=== PATIENT | female | born 1950 | race Caucasian/White ===

== ENCOUNTER 2018-07-20 12:56 | Inpatient (IN) ==
[2018-07-20] MEDS ORDERED: ONDANSETRON 4 MG/2 ML VIAL IV STA (17:32)
[2018-07-20] MEDS ORDERED: methylPREDNISolone SOD SUC 125 MG/2 ML VIAL IV STA (17:32)
[2018-07-20] MEDS ORDERED: SODIUM CHLORIDE 0.9% 1,000 ML IV STA (17:32)
[2018-07-20] MEDS ORDERED: LEVOFLOXACIN INJ 750 MG in PREMIX 1 EACH IV STA (17:32)
[2018-07-20] MEDS ORDERED: ALBUTEROL 2.5 MG/3 ML NEB RESP TX SCH (18:00)
[2018-07-20 18:32] LABS: Basophils % 0.2 % (0.0-0.8); Eosinophils % 0.2 % (0.00-10.9); Hematocrit 36.1 VOL% (35.7-47.0); Hemoglobin 11.2 GM/DL (12.0-16.0); Immature Granulocytes Absolute 0.12 #; Lymphocytes # 2.4 10*3/uL (1.4-4.0); Lymphocytes % 19.9 % (21.3-54.2); Mean Corpuscular Hemoglobin 29 PG (27-34); Mean Corpuscular Volume 94.3 FL (87-102); Mean Platelet Volume 9.3 FL (9.6-12.0); Monocytes # 1.9 10*3/uL (0.11-0.8); Monocytes % 15.6 % (1.7-12.7); Neutrophils # 7.6 10*3/uL (1.4-7.4); Neutrophils % 63.1 % (38.7-73.9); Platelet Count 207 T/CUMM (130-400); Red Blood Count 3.83 MC/CUMM (3.8-5.5); Red Cell Distribution Width 12.6 % (9.3-17.3); White Blood Count 12.1 T/CUMM (4-12)
[2018-07-20 18:47] LABS: Apearance,Urine Slightly Hazy (Clear); Bilirubin,Urine Negative (Negative); Blood, Urine Small mg/dL (Negative); Glucose,Urine (UA) Negative (Negative); Hyaline Casts,Urine 156 /LPF (0-3); Ketones,Urine 5 mg/dL (Negative); Mucus,Urine Few /LPF (Occasional); Nitrite,Urine Negative (Negative); Protein,Urine Negative; RBC,Urine 14 /HPF (0-4); Squamous Epithelial Cell,Urine Occasional /HPF (0-10); Urine Color Amber (Yellow); Urine Specific Gravity 1.024 (1.001-1.035); WBC,Urine 6 /HPF (0-6)
[2018-07-20 18:47] LABS: PT Patient Result 10.7 SECS; Partial Thromboplastin Time 32.4 SECS (0-40)
[2018-07-20 19:06] LABS: Alanine Aminotransferase 12 U/L (13-56); Albumin 3.7 G/DL (3.4-5.0); Alkaline Phosphatase 103 U/L (45-117); Aspartate Amino Transferase 11 U/L (0-37); Blood Urea Nitrogen 16 MG/DL (7-18); Calcium 8.4 MG/DL (8.5-10.1); Glucose 99 MG/DL (74-106); Osmolality,Calculated 268.2 MOS/KG (273-304); Potassium 3.7 MMOL/L (3.5-5.1); Sodium 134 MMOL/L (136-145); Total Protein 6.9 G/DL (6.4-8.3); Troponin I < 0.015 NG/ML (0.00-0.045)
[2018-07-20 19:25] LABS: Lymphocytes 15 % (20-55); Platelet Estimate Normal; Segmented Neutrophils 70 % (50-85); Total Cells Counted 100
[2018-07-20] MEDS ORDERED: NICOTINE 21 MG/24 HR PATCH TRANSDERM PRN (21:36)
[2018-07-20] MEDS ORDERED: ONDANSETRON 4 MG/2 ML VIAL IV PRN (21:36)
[2018-07-20] MEDS ORDERED: ACETAMINOPHEN 325 MG TABLET PO PRN (21:36)
[2018-07-20] MEDS ORDERED: diphenhydrAMINE CAP 25 MG CAPSULE PO PRN (21:36)
[2018-07-20] MEDS ORDERED: BISACODYL 5 MG TABLET PO PRN (21:36)
[2018-07-20] MEDS ORDERED: guaiFENesin/DM ER 600-30 MG TABLET PO PRN (21:36)
[2018-07-20] MEDS ORDERED: ZALEPLON 5 MG CAPSULE PO PRN (21:36)
[2018-07-20 22:05] LABS: Allen Test Positive
[2018-07-20 22:06] LABS: ABG Base Excess 1.5 MMOL/L (-2.5-2.5); ABG HCO3 25.7 MMOL/L (20-26); ABG Oxygen Saturation 97.8 % (95-100); ABG PCO2 66.7 MM HG (35-48); ABG PH 7.267 (7.35-7.45); ABG TCO2 27.6 MMOL/L (23-27)
[2018-07-20] MEDS: cefTRIAXone 1,000 MG in SYRINGE 1 EACH IV SCH (23:19)
[2018-07-21] MEDS: AZITHROMYCIN INJ 500 MG in SODIUM CHLORIDE 0.9% 250 ML IV SCH (00:04)
[2018-07-21] MEDS: ALBUTEROL/IPRATROPIUM 3 ML NEB RESP TX SCH ×4 (00:25→19:28)
[2018-07-21 04:05] LABS: Hematocrit 36.3 VOL% (35.7-47.0); Hemoglobin 11.3 GM/DL (12.0-16.0); Immature Granulocytes % 0.6 %; Immature Granulocytes Absolute 0.05 #; Lymphocytes # 0.7 10*3/uL (1.4-4.0); Lymphocytes % 8.4 % (21.3-54.2); Mean Corpuscular HGB Conc 31.1 GM/DL (32-36); Mean Corpuscular Hemoglobin 29 PG (27-34); Mean Corpuscular Volume 94.3 FL (87-102); Mean Platelet Volume 9.2 FL (9.6-12.0); Monocytes # 0.4 10*3/uL (0.11-0.8); Monocytes % 5.1 % (1.7-12.7); Neutrophils # 7.1 10*3/uL (1.4-7.4); Neutrophils % 85.9 % (38.7-73.9); Platelet Count 192 T/CUMM (130-400); Red Blood Count 3.85 MC/CUMM (3.8-5.5); Red Cell Distribution Width 12.6 % (9.3-17.3); White Blood Count 8.2 T/CUMM (4-12)
[2018-07-21 04:31] LABS: Lymphocytes 10 % (20-55); Segmented Neutrophils 89 % (50-85); Total Cells Counted 100
[2018-07-21 04:33] LABS: Anisocytosis Slight; Microcytosis Slight
[2018-07-21 04:34] LABS: Ovalocytes Slight; Platelet Estimate Normal
[2018-07-21 04:50] LABS: Alanine Aminotransferase 15 U/L (13-56); Albumin 3.3 G/DL (3.4-5.0); Alkaline Phosphatase 103 U/L (45-117); Aspartate Amino Transferase 11 U/L (0-37); Bilirubin,Total < 0.39 MG/DL (0.2-1.0); Blood Urea Nitrogen 15 MG/DL (7-18); Calcium 8.7 MG/DL (8.5-10.1); Glucose 142 MG/DL (74-106); Osmolality,Calculated 272.1 MOS/KG (273-304); Potassium 4.4 MMOL/L (3.5-5.1); Sodium 135 MMOL/L (136-145)
[2018-07-21] MEDS ORDERED: DIVALPROEX 500 MG TABLET PO SCH (10:00)
[2018-07-21] MEDS ORDERED: GLUCAGON 1 MG VIAL IM PRN (10:08)
[2018-07-21] MEDS ORDERED: DEXTROSE 50% 25 GM/50 ML VIAL IV PRN (10:08)
[2018-07-21] MEDS ORDERED: BENZTROPINE 0.5 MG TABLET PO SCH (11:00)
[2018-07-21] MEDS: cefTRIAXone 1,000 MG in SYRINGE 1 EACH IV SCH (11:30)
[2018-07-21] MEDS: predniSONE 20 MG TABLET PO SCH (11:30)
[2018-07-21] MEDS: PANTOPRAZOLE 40 MG TABLET PO SCH (11:30)
[2018-07-21] MEDS: ENOXAPARIN 40 MG/0.4 ML SYRINGE SUBCUT SCH (11:35)
[2018-07-21] MEDS ORDERED: DEXTROSE 50% 25 GM/50 ML SYRINGE IV PRN (13:30)
[2018-07-21] MEDS: SERTRALINE 50 MG TABLET PO SCH (14:02)
[2018-07-21] MEDS: oxyCODONE/ACETAMINOPHEN 5-325 MG TABLET PO PRN (14:02)
[2018-07-21] MEDS: risperiDONE 1 MG TABLET PO SCH ×2 (14:02→20:30)
[2018-07-21] MEDS: INSULIN LISPRO 100 UNIT/ML SUBCUT SCH ×3 (14:03→23:16)
[2018-07-21] MEDS: GABAPENTIN 400 MG CAPSULE PO SCH ×2 (15:35→20:30)
[2018-07-21] MEDS: cloNIDine 0.1 MG TABLET PO SCH (20:30)
[2018-07-21] MEDS: traZODone 50 MG TABLET PO SCH (20:30)
[2018-07-21] MEDS: METOPROLOL TARTRATE 50 MG TABLET PO SCH (20:30)
[2018-07-21] MEDS: BENZTROPINE 0.5 MG TABLET PO SCH (20:30)
[2018-07-21] MEDS: QUEtiapine 100 MG TABLET PO SCH (20:30)
[2018-07-21] MEDS: lamoTRIgine 25 MG TABLET PO SCH (20:30)
[2018-07-22] MEDS: ALBUTEROL/IPRATROPIUM 3 ML NEB RESP TX SCH ×4 (00:44→19:33)
[2018-07-22 04:45] LABS: Basophils % 0.3 % (0.0-0.8); Hematocrit 38.2 VOL% (35.7-47.0); Hemoglobin 11.8 GM/DL (12.0-16.0); Immature Granulocytes % 1.1 %; Lymphocytes # 1.4 10*3/uL (1.4-4.0); Lymphocytes % 15.1 % (21.3-54.2); Mean Corpuscular HGB Conc 30.9 GM/DL (32-36); Mean Corpuscular Hemoglobin 29 PG (27-34); Mean Corpuscular Volume 93.6 FL (87-102); Mean Platelet Volume 9.6 FL (9.6-12.0); Monocytes # 0.9 10*3/uL (0.11-0.8); Monocytes % 9.7 % (1.7-12.7); Neutrophils # 6.9 10*3/uL (1.4-7.4); Neutrophils % 73.8 % (38.7-73.9); Platelet Count 248 T/CUMM (130-400); Red Blood Count 4.08 MC/CUMM (3.8-5.5); Red Cell Distribution Width 12.3 % (9.3-17.3); White Blood Count 9.4 T/CUMM (4-12)
[2018-07-22 05:16] LABS: Calcium 8.8 MG/DL (8.5-10.1); Osmolality,Calculated 273.7 MOS/KG (273-304)
[2018-07-22 05:17] LABS: Platelet Estimate Normal
[2018-07-22 05:18] LABS: Polychromasia Few
[2018-07-22] MEDS: INSULIN LISPRO 100 UNIT/ML SUBCUT SCH ×4 (08:03→21:42)
[2018-07-22] MEDS: ENOXAPARIN 40 MG/0.4 ML SYRINGE SUBCUT SCH (08:44)
[2018-07-22] MEDS: risperiDONE 1 MG TABLET PO SCH ×2 (08:45→21:40)
[2018-07-22] MEDS: GABAPENTIN 400 MG CAPSULE PO SCH ×3 (08:45→21:41)
[2018-07-22] MEDS: METOPROLOL TARTRATE 50 MG TABLET PO SCH ×2 (08:45→21:41)
[2018-07-22] MEDS: PANTOPRAZOLE 40 MG TABLET PO SCH (08:45)
[2018-07-22] MEDS: predniSONE 20 MG TABLET PO SCH (08:45)
[2018-07-22] MEDS: cefTRIAXone 1,000 MG in SYRINGE 1 EACH IV SCH (08:45)
[2018-07-22] MEDS: SERTRALINE 50 MG TABLET PO SCH (08:45)
[2018-07-22] MEDS: methylPREDNISolone SOD SUC 40 MG/1 ML VIAL IV SCH ×2 (08:46→16:12)
[2018-07-22] MEDS: lamoTRIgine 25 MG TABLET PO SCH ×2 (08:46→21:41)
[2018-07-22] MEDS: cloNIDine 0.1 MG TABLET PO SCH ×2 (08:46→21:41)
[2018-07-22] MEDS: BENZTROPINE 0.5 MG TABLET PO SCH ×2 (08:46→21:41)
[2018-07-22] MEDS: oxyCODONE/ACETAMINOPHEN 5-325 MG TABLET PO PRN ×3 (08:54→22:06)
[2018-07-22] MEDS: AZITHROMYCIN INJ 500 MG in SODIUM CHLORIDE 0.9% 250 ML IV SCH (08:56)
[2018-07-22] MEDS: traZODone 50 MG TABLET PO SCH (21:40)
[2018-07-22] MEDS: QUEtiapine 100 MG TABLET PO SCH (21:42)
[2018-07-23] MEDS: methylPREDNISolone SOD SUC 40 MG/1 ML VIAL IV SCH ×2 (00:31→09:47)
[2018-07-23] MEDS: ALBUTEROL/IPRATROPIUM 3 ML NEB RESP TX SCH ×3 (01:32→12:47)
[2018-07-23] MEDS: cloNIDine 0.1 MG TABLET PO SCH ×2 (05:09→09:42)
[2018-07-23] MEDS: oxyCODONE/ACETAMINOPHEN 5-325 MG TABLET PO PRN ×2 (07:11→14:28)
[2018-07-23] MEDS: INSULIN LISPRO 100 UNIT/ML SUBCUT SCH ×2 (07:51→11:53)
[2018-07-23] MEDS ORDERED: methylPREDNISolone ACETATE 40 MG/1 ML VIAL IM ONE (08:23)
[2018-07-23] MEDS ORDERED: MONTELUKAST 10 MG TABLET PO ONE (09:03)
[2018-07-23] MEDS ORDERED: amLODIPine 5 MG TABLET PO ONE (09:35)
[2018-07-23] MEDS: cefTRIAXone 1,000 MG in SYRINGE 1 EACH IV SCH (09:39)
[2018-07-23] MEDS: ENOXAPARIN 40 MG/0.4 ML SYRINGE SUBCUT SCH (09:41)
[2018-07-23] MEDS: risperiDONE 1 MG TABLET PO SCH (09:41)
[2018-07-23] MEDS: GABAPENTIN 400 MG CAPSULE PO SCH ×2 (09:42→14:29)
[2018-07-23] MEDS: BENZTROPINE 0.5 MG TABLET PO SCH (09:42)
[2018-07-23] MEDS: METOPROLOL TARTRATE 50 MG TABLET PO SCH (09:42)
[2018-07-23] MEDS: SERTRALINE 50 MG TABLET PO SCH (09:42)
[2018-07-23] MEDS: PANTOPRAZOLE 40 MG TABLET PO SCH (09:42)
[2018-07-23] MEDS: lamoTRIgine 25 MG TABLET PO SCH (09:42)
[2018-07-23] MEDS: predniSONE 20 MG TABLET PO SCH (09:42)
[2018-07-23] MEDS: AZITHROMYCIN INJ 500 MG in SODIUM CHLORIDE 0.9% 250 ML IV SCH (09:53)
[2018-07-23 12:00] VITALS: BP 169/98
== END 2018-07-23 15:28 | disposition home health service (06) | DRG 193 ==
LOC: N.ED 12:56 → SUATTDRO 21:36 → N.EDINP 21:36 → N.2E 07-21 12:44
PROVIDERS: ADMIT Internal Medicine; ATTEND Internal Medicine

== ENCOUNTER 2020-07-28 14:28 | Observation (INO) ==
[2020-07-28 15:35] LABS: Basophils % 0.6 % (0.0-0.8); Eosinophils # 0.1 10*3/uL (0.0-0.87); Eosinophils % 1.3 % (0.00-10.9); Hematocrit 31.6 VOL% (35.7-47.0); Hemoglobin 10.7 GM/DL (12.0-16.0); Immature Granulocytes % 0.8 %; Immature Granulocytes Absolute 0.04 #; Lymphocytes # 1.7 10*3/uL (1.4-4.0); Lymphocytes % 35.9 % (21.3-54.2); Mean Corpuscular HGB Conc 33.9 GM/DL (32-36); Mean Platelet Volume 8.5 FL (9.6-12.0); Monocytes % 14.2 % (1.7-12.7); Neutrophils % 47.2 % (38.7-73.9); Platelet Count 293 T/CUMM (130-400); Red Blood Count 3.55 MC/CUMM (3.8-5.5); Red Cell Distribution Width 12.2 % (9.3-17.3); White Blood Count 4.7 T/CUMM (4-12)
[2020-07-28 15:45] LABS: INR 0.9; PT Patient Result 10.6 SECS (9.8-11.9)
[2020-07-28 15:57] LABS: Alanine Aminotransferase 21 U/L (13-56); Albumin 3.4 G/DL (3.4-5.0); Alkaline Phosphatase 108 U/L (45-117); Aspartate Amino Transferase 15 U/L (0-37); Bilirubin,Total < 0.39 MG/DL (0.2-1.0); Blood Urea Nitrogen 9 MG/DL (7-18); Calcium 9.3 MG/DL (8.5-10.1); Carbon Dioxide 28 MMOL/L (21-32); Estimated Glom Filtration Rate 88 ML/MIN; Glucose 87 MG/DL (74-106); Osmolality,Calculated 261.5 MOS/KG (273-304); Potassium 4.3 MMOL/L (3.5-5.1); Sodium 132 MMOL/L (136-145); Total Protein 6.7 G/DL (6.4-8.2)
[2020-07-28 16:05] LABS: Acetaminophen < 2.0 UG/ML (10-30); Salicylate < 2.8 MG/DL (2.8-20)
[2020-07-28 16:09] LABS: Bacteria,Urine Occasional /HPF (Few); Bilirubin,Urine Negative (Negative); Blood, Urine Negative (Negative); Glucose,Urine (UA) Negative (Negative); Ketones,Urine Negative (Negative); Mucus,Urine Occasional /LPF (Occasional); Nitrite,Urine Negative (Negative); Protein,Urine Negative; RBC,Urine <1 /HPF (0-4); Squamous Epithelial Cell,Urine Occasional /HPF (0-10); Urine Appearance CLEAR (Clear); Urine Color Yellow (Yellow); Urine Specific Gravity 1.014 (1.001-1.035); Urine Urobilinogen < 2.0 EU/DL (0.2-1.0); WBC,Urine 1 /HPF (0-6)
[2020-07-28 17:33] LABS: Barbiturates Screen,Urine Negative (Negative); Benzodiazepines Screen,Urine Negative (Negative); Cannabinoid Screen,Urine Negative (Negative); Opiate Screen,Urine Positive (Negative); Phencyclidine Screen,Urine Negative (Negative)
[2020-07-28] MEDS ORDERED: DEXTROSE 50% 25 GM/50 ML VIAL IV PRN (18:12)
[2020-07-28] MEDS ORDERED: GLUCAGON 1 MG VIAL IM PRN (18:12)
[2020-07-28] MEDS ORDERED: hydrALAZINE 20 MG/1 ML VIAL IV PRN (18:32)
[2020-07-29 07:29] LABS: Basophils % 0.8 % (0.0-0.8); Eosinophils # 0.1 10*3/uL (0.0-0.87); Eosinophils % 1.1 % (0.00-10.9); Hematocrit 34.7 VOL% (35.7-47.0); Hemoglobin 11.5 GM/DL (12.0-16.0); Immature Granulocytes % 0.6 %; Immature Granulocytes Absolute 0.03 #; Lymphocytes # 1.4 10*3/uL (1.4-4.0); Lymphocytes % 30.1 % (21.3-54.2); Mean Corpuscular HGB Conc 33.1 GM/DL (32-36); Mean Corpuscular Volume 88.7 FL (87-102); Mean Platelet Volume 8.2 FL (9.6-12.0); Monocytes % 14.4 % (1.7-12.7); Platelet Count 368 T/CUMM (130-400); Red Blood Count 3.91 MC/CUMM (3.8-5.5); Red Cell Distribution Width 12.2 % (9.3-17.3); White Blood Count 4.7 T/CUMM (4-12)
[2020-07-29 08:04] LABS: Albumin 3.1 G/DL (3.4-5.0); Bilirubin,Total 0.4 MG/DL (0.2-1.0); Calcium 9.6 MG/DL (8.5-10.1); Osmolality,Calculated 264.2 MOS/KG (273-304); Potassium 4.2 MMOL/L (3.5-5.1); Risk Ratio 4.23; Thyroid Stimulating Hormone 1.58 uIU/ml (0.358-3.74); Total Protein 6.7 G/DL (6.4-8.2); VLDL CHOLESTEROL 17.2 MG/DL
[2020-07-29] MEDS: lisinopriL 20 MG TABLET PO SCH (09:35)
[2020-07-29] MEDS: amLODIPine 10 MG TABLET PO SCH (09:35)
[2020-07-29] MEDS: METOPROLOL TARTRATE 25 MG TABLET PO SCH ×2 (14:15→21:14)
[2020-07-29] MEDS ORDERED: DIVALPROEX ER 500 MG TABLET PO SCH (21:00)
[2020-07-30 07:40] LABS: Basophils % 0.5 % (0.0-0.8); Eosinophils # 0.1 10*3/uL (0.0-0.87); Eosinophils % 0.9 % (0.00-10.9); Hematocrit 31.9 VOL% (35.7-47.0); Hemoglobin 10.6 GM/DL (12.0-16.0); Immature Granulocytes % 0.5 %; Immature Granulocytes Absolute 0.03 #; Lymphocytes % 35.5 % (21.3-54.2); Mean Corpuscular HGB Conc 33.2 GM/DL (32-36); Mean Corpuscular Volume 88.9 FL (87-102); Mean Platelet Volume 8.5 FL (9.6-12.0); Monocytes % 10.3 % (1.7-12.7); Neutrophils % 52.3 % (38.7-73.9); Platelet Count 357 T/CUMM (130-400); Red Blood Count 3.59 MC/CUMM (3.8-5.5); Red Cell Distribution Width 12.2 % (9.3-17.3); White Blood Count 5.7 T/CUMM (4-12)
[2020-07-30 08:02] LABS: Calcium 9.1 MG/DL (8.5-10.1); Osmolality,Calculated 268.1 MOS/KG (273-304)
[2020-07-30] MEDS: amLODIPine 10 MG TABLET PO SCH (08:42)
[2020-07-30] MEDS: lisinopriL 20 MG TABLET PO SCH (08:50)
[2020-07-30] MEDS ORDERED: METOPROLOL TARTRATE 25 MG TABLET PO SCH (09:00)
[2020-07-30 15:12] VITALS: BP 136/60
== END 2020-07-30 15:47 ==
LOC: EDBD → EDUNIT# → N.EDINP 14:28 → N.ED 14:28 → N.EDINP 20:21 → N.TELES 21:17
PROVIDERS: ADMIT Internal Medicine; ATTEND Internal Medicine

== ENCOUNTER 2020-08-06 21:36 | Inpatient (IN) ==
[2020-08-06] MEDS ORDERED: SODIUM CHLORIDE 0.9% 500 ML IV STA (21:58)
[2020-08-06 22:10] LABS: Basophils % 0.7 % (0.0-0.8); Eosinophils % 0.5 % (0.00-10.9); Hematocrit 31.2 VOL% (35.7-47.0); Immature Granulocytes % 0.7 %; Immature Granulocytes Absolute 0.03 #; Lymphocytes # 1.4 10*3/uL (1.4-4.0); Lymphocytes % 32.6 % (21.3-54.2); Mean Corpuscular HGB Conc 35.3 GM/DL (32-36); Mean Corpuscular Volume 85.7 FL (87-102); Monocytes % 19.5 % (1.7-12.7); Platelet Count 286 T/CUMM (130-400); Red Blood Count 3.64 MC/CUMM (3.8-5.5); Red Cell Distribution Width 12.2 % (9.3-17.3); White Blood Count 4.4 T/CUMM (4-12)
[2020-08-06 22:29] LABS: PT Patient Result 10.9 SECS (10.5-12.0)
[2020-08-06 22:32] LABS: Alanine Aminotransferase 17 U/L (13-56); Albumin 3.6 G/DL (3.4-5.0); Alkaline Phosphatase 102 U/L (45-117); Aspartate Amino Transferase 15 U/L (0-37); Bilirubin,Total < 0.39 MG/DL (0.2-1.0); Blood Urea Nitrogen 10 MG/DL (7-18); Calcium 9.3 MG/DL (8.5-10.1); Carbon Dioxide 24 MMOL/L (21-32); Eosinophils 2 % (0-10); Estimated Glom Filtration Rate 83 ML/MIN; Glucose 107 MG/DL (74-106); Lymphocytes 33 % (20-55); Nucleated Red Blood Cells 0 (0-5); Osmolality,Calculated 245.8 MOS/KG (273-304); Platelet Estimate Normal; Potassium 3.3 MMOL/L (3.5-5.1); Segmented Neutrophils 48 % (50-85); Sodium 123 MMOL/L (136-145); Total Cells Counted 100; Troponin I < 0.015 NG/ML (0.00-0.045)
[2020-08-06] MEDS ORDERED: MAGNESIUM SULF RIDER 2 GM/50 ML PREMIX IV STA (22:39)
[2020-08-06 22:55] LABS: Bilirubin,Urine Negative (Negative); Blood, Urine Negative (Negative); Glucose,Urine (UA) Negative (Negative); Ketones,Urine Negative (Negative); Mucus,Urine Occasional /LPF (Occasional); Nitrite,Urine Negative (Negative); Protein,Urine Negative; RBC,Urine 1 /HPF (0-4); Urine Appearance CLEAR (Clear); Urine Color Yellow (Yellow); Urine Specific Gravity 1.015 (1.001-1.035); Urine Urobilinogen < 2.0 EU/DL (0.2-1.0)
[2020-08-06 23:03] LABS: Barbiturates Screen,Urine Negative (Negative); Benzodiazepines Screen,Urine Negative (Negative); Cannabinoid Screen,Urine Negative (Negative); Opiate Screen,Urine Positive (Negative); Phencyclidine Screen,Urine Negative (Negative)
[2020-08-06] MEDS ORDERED: DEXTROSE 50% 25 GM/50 ML VIAL IV PRN (23:05)
[2020-08-06] MEDS ORDERED: DOCUSATE SODIUM 100 MG CAPSULE PO PRN (23:05)
[2020-08-06] MEDS ORDERED: ONDANSETRON 4 MG/2 ML VIAL IV PRN (23:05)
[2020-08-06] MEDS ORDERED: hydrALAZINE 20 MG/1 ML VIAL IV PRN (23:05)
[2020-08-06] MEDS ORDERED: GLUCAGON 1 MG VIAL IM PRN (23:05)
[2020-08-06] MEDS ORDERED: MAGNESIUM SULF RIDER 2 GM/50 ML PREMIX IV PRN (23:11)
[2020-08-06] MEDS ORDERED: MAGNESIUM SULF RIDER 4 GM/100 ML PREMIX IV PRN (23:11)
[2020-08-07] MEDS ORDERED: METOPROLOL TARTRATE 25 MG TABLET PO STA (00:04)
[2020-08-07] MEDS ORDERED: DILTIAZEM 50 MG/10 ML VIAL IV STA (00:08)
[2020-08-07] MEDS ORDERED: DILTIAZEM 25 MG/5 ML VIAL IV ONE (00:09)
[2020-08-07] MEDS ORDERED: DILTIAZEM 100 MG VIAL.ADD IV ONE (00:28)
[2020-08-07] MEDS: SODIUM CHLORIDE 0.9% 1,000 ML IV SCH ×4 (00:30→23:17)
[2020-08-07] MEDS: ENOXAPARIN 40 MG/0.4 ML SYRINGE SUBCUT SCH ×2 (00:30→23:04)
[2020-08-07] MEDS: DILTIAZEM INJ 100 MG in SODIUM CHLORIDE 0.9% 100 ML IV SCH ×4 (00:35→23:38)
[2020-08-07] MEDS: POTASSIUM CHLORIDE 20 MEQ TABLET PO PRN ×3 (00:47→05:47)
[2020-08-07 01:19] LABS: % Iron Saturation 13.9 % (18-50); Ferritin 143.7 ng/ml (8-252)
[2020-08-07 02:07] LABS: Risk Ratio 3.23
[2020-08-07 04:46] LABS: Basophils % 0.5 % (0.0-0.8); Eosinophils % 0.2 % (0.00-10.9); Hematocrit 31.6 VOL% (35.7-47.0); Hemoglobin 11.2 GM/DL (12.0-16.0); Immature Granulocytes % 0.5 %; Immature Granulocytes Absolute 0.03 #; Lymphocytes # 1.1 10*3/uL (1.4-4.0); Lymphocytes % 17.7 % (21.3-54.2); Mean Corpuscular HGB Conc 35.4 GM/DL (32-36); Mean Platelet Volume 8.7 FL (9.6-12.0); Monocytes % 16.5 % (1.7-12.7); Neutrophils % 64.6 % (38.7-73.9); Platelet Count 336 T/CUMM (130-400); Red Blood Count 3.76 MC/CUMM (3.8-5.5); Red Cell Distribution Width 12.2 % (9.3-17.3); White Blood Count 6.1 T/CUMM (4-12)
[2020-08-07 05:08] LABS: Calcium 8.9 MG/DL (8.5-10.1); Osmolality,Calculated 246.6 MOS/KG (273-304); Potassium 3.5 MMOL/L (3.5-5.1)
[2020-08-07 05:09] LABS: Eosinophils 2 % (0-10); Lymphocytes 22 % (20-55); Platelet Estimate Adequate; Segmented Neutrophils 58 % (50-85); Total Cells Counted 100
[2020-08-07 05:10] LABS: Hypochromasia 1+; Microcytosis 1+; Ovalocytes Slight
[2020-08-07] MEDS: PANTOPRAZOLE 40 MG TABLET PO SCH (09:16)
[2020-08-07] MEDS: NICOTINE 21 MG/24 HR PATCH TRANSDERM SCH (11:01)
[2020-08-07] MEDS ORDERED: POTASSIUM CHLORIDE 20 MEQ TABLET PO ONE (13:12)
[2020-08-07] MEDS: ASPIRIN EC 81 MG TABLET PO SCH (14:05)
[2020-08-07] MEDS: METOPROLOL TARTRATE 50 MG TABLET PO SCH ×2 (14:05→20:21)
[2020-08-07] MEDS: ASCORBIC ACID 500 MG TABLET PO SCH ×2 (14:05→20:21)
[2020-08-07] MEDS: lamoTRIgine 25 MG TABLET PO SCH (20:21)
[2020-08-07] MEDS: DIVALPROEX ER 500 MG TABLET PO SCH (20:21)
[2020-08-07] MEDS: OXcarbazepine 300 MG TABLET PO SCH (20:21)
[2020-08-07] MEDS ORDERED: METOPROLOL TARTRATE 25 MG TABLET PO SCH (21:00)
[2020-08-08] MEDS: OLANZapine 10 MG VIAL IM PRN (00:31)
[2020-08-08 05:52] LABS: Calcium 8.9 MG/DL (8.5-10.1); Osmolality,Calculated 261.5 MOS/KG (273-304); Potassium 4.2 MMOL/L (3.5-5.1)
[2020-08-08 05:58] LABS: Basophils % 0.8 % (0.0-0.8); Hematocrit 29.3 VOL% (35.7-47.0); Hemoglobin 10.1 GM/DL (12.0-16.0); Immature Granulocytes % 0.3 %; Immature Granulocytes Absolute 0.01 #; Lymphocytes # 1.4 10*3/uL (1.4-4.0); Lymphocytes % 33.9 % (21.3-54.2); Mean Corpuscular HGB Conc 34.5 GM/DL (32-36); Mean Corpuscular Volume 87.7 FL (87-102); Mean Platelet Volume 8.9 FL (9.6-12.0); Monocytes % 14.8 % (1.7-12.7); Neutrophils % 49.2 % (38.7-73.9); Red Blood Count 3.34 MC/CUMM (3.8-5.5); Red Cell Distribution Width 12.7 % (9.3-17.3)
[2020-08-08 06:00] LABS: Platelet Count 279 T/CUMM (130-400)
[2020-08-08] MEDS: ROSUVASTATIN 10 MG TABLET PO SCH (08:57)
[2020-08-08] MEDS: ASPIRIN EC 81 MG TABLET PO SCH (08:57)
[2020-08-08] MEDS: METOPROLOL TARTRATE 50 MG TABLET PO SCH ×2 (08:57→20:18)
[2020-08-08] MEDS: SERTRALINE 100 MG TABLET PO SCH (08:57)
[2020-08-08] MEDS: NICOTINE 21 MG/24 HR PATCH TRANSDERM SCH (08:58)
[2020-08-08] MEDS: lisinopriL 20 MG TABLET PO SCH (08:58)
[2020-08-08] MEDS: PANTOPRAZOLE 40 MG TABLET PO SCH (08:58)
[2020-08-08] MEDS: OXcarbazepine 300 MG TABLET PO SCH ×2 (08:59→20:18)
[2020-08-08] MEDS ORDERED: amLODIPine 10 MG TABLET PO SCH (09:00)
[2020-08-08] MEDS: lamoTRIgine 25 MG TABLET PO SCH ×2 (09:02→20:18)
[2020-08-08] MEDS: ASCORBIC ACID 500 MG TABLET PO SCH ×2 (09:02→20:18)
[2020-08-08] MEDS: SODIUM CHLORIDE 0.9% 1,000 ML IV SCH ×2 (14:09→20:18)
[2020-08-08] MEDS: DIVALPROEX ER 500 MG TABLET PO SCH (20:18)
[2020-08-08] MEDS: ENOXAPARIN 40 MG/0.4 ML SYRINGE SUBCUT SCH (23:45)
[2020-08-08] MEDS: DILTIAZEM INJ 100 MG in SODIUM CHLORIDE 0.9% 100 ML IV SCH (23:46)
[2020-08-09] MEDS: SODIUM CHLORIDE 0.9% 1,000 ML IV SCH ×2 (03:50→10:00)
[2020-08-09 06:11] LABS: Basophils % 0.8 % (0.0-0.8); Eosinophils # 0.1 10*3/uL (0.0-0.87); Hematocrit 30.1 VOL% (35.7-47.0); Hemoglobin 10.2 GM/DL (12.0-16.0); Immature Granulocytes % 0.2 %; Immature Granulocytes Absolute 0.01 #; Lymphocytes # 1.6 10*3/uL (1.4-4.0); Lymphocytes % 31.4 % (21.3-54.2); Mean Corpuscular HGB Conc 33.9 GM/DL (32-36); Mean Platelet Volume 9.1 FL (9.6-12.0); Monocytes % 12.6 % (1.7-12.7); Platelet Count 280 T/CUMM (130-400); Red Blood Count 3.42 MC/CUMM (3.8-5.5); Red Cell Distribution Width 12.9 % (9.3-17.3); White Blood Count 4.9 T/CUMM (4-12)
[2020-08-09 06:45] LABS: Calcium 9.4 MG/DL (8.5-10.1); Osmolality,Calculated 265.2 MOS/KG (273-304); Potassium 4.2 MMOL/L (3.5-5.1)
[2020-08-09 08:14] LABS: Hypochromasia 1+
[2020-08-09 08:15] LABS: Microcytosis 1+; Ovalocytes Slight; Platelet Estimate Normal
[2020-08-09] MEDS: OXcarbazepine 300 MG TABLET PO SCH ×2 (08:38→21:54)
[2020-08-09] MEDS: ROSUVASTATIN 10 MG TABLET PO SCH (08:39)
[2020-08-09] MEDS: PANTOPRAZOLE 40 MG TABLET PO SCH (08:39)
[2020-08-09] MEDS: METOPROLOL TARTRATE 50 MG TABLET PO SCH ×2 (08:40→21:54)
[2020-08-09] MEDS: NICOTINE 21 MG/24 HR PATCH TRANSDERM SCH (08:40)
[2020-08-09] MEDS: ASCORBIC ACID 500 MG TABLET PO SCH ×2 (08:40→21:54)
[2020-08-09] MEDS: lisinopriL 20 MG TABLET PO SCH (08:40)
[2020-08-09] MEDS: ASPIRIN EC 325 MG TABLET PO SCH (08:40)
[2020-08-09] MEDS: lamoTRIgine 25 MG TABLET PO SCH ×2 (08:40→21:53)
[2020-08-09] MEDS: SERTRALINE 100 MG TABLET PO SCH (08:40)
[2020-08-09] MEDS ORDERED: TUBERCULIN SKIN TEST 0.1 ML SYRINGE INTRADERM ONE (13:41)
[2020-08-09] MEDS: DIVALPROEX ER 500 MG TABLET PO SCH (21:54)
[2020-08-10] MEDS: ENOXAPARIN 40 MG/0.4 ML SYRINGE SUBCUT SCH (00:09)
[2020-08-10] MEDS: SODIUM CHLORIDE 0.9% 1,000 ML IV SCH ×4 (01:30→20:16)
[2020-08-10 04:33] LABS: Calcium 9.1 MG/DL (8.5-10.1); Osmolality,Calculated 258.8 MOS/KG (273-304)
[2020-08-10] MEDS: NICOTINE 21 MG/24 HR PATCH TRANSDERM SCH (09:11)
[2020-08-10] MEDS: OXcarbazepine 300 MG TABLET PO SCH ×2 (09:12→20:59)
[2020-08-10] MEDS: METOPROLOL TARTRATE 50 MG TABLET PO SCH ×2 (09:12→20:59)
[2020-08-10] MEDS: ASCORBIC ACID 500 MG TABLET PO SCH ×2 (09:12→20:58)
[2020-08-10] MEDS: lisinopriL 20 MG TABLET PO SCH (09:12)
[2020-08-10] MEDS: ASPIRIN EC 325 MG TABLET PO SCH (09:12)
[2020-08-10] MEDS: ROSUVASTATIN 10 MG TABLET PO SCH (09:12)
[2020-08-10] MEDS: PANTOPRAZOLE 40 MG TABLET PO SCH (09:13)
[2020-08-10] MEDS: lamoTRIgine 25 MG TABLET PO SCH ×2 (09:13→20:58)
[2020-08-10] MEDS: SERTRALINE 100 MG TABLET PO SCH (09:15)
[2020-08-10] MEDS: ACETAMINOPHEN 325 MG TABLET PO PRN (15:31)
[2020-08-10] MEDS: DIVALPROEX ER 500 MG TABLET PO SCH (20:59)
[2020-08-11] MEDS: ENOXAPARIN 40 MG/0.4 ML SYRINGE SUBCUT SCH (00:11)
[2020-08-11 05:56] LABS: Basophils % 0.5 % (0.0-0.8); Eosinophils # 0.1 10*3/uL (0.0-0.87); Eosinophils % 0.9 % (0.00-10.9); Hematocrit 32.5 VOL% (35.7-47.0); Hemoglobin 10.8 GM/DL (12.0-16.0); Immature Granulocytes % 0.3 %; Immature Granulocytes Absolute 0.02 #; Lymphocytes # 2.2 10*3/uL (1.4-4.0); Lymphocytes % 38.6 % (21.3-54.2); Mean Corpuscular HGB Conc 33.2 GM/DL (32-36); Mean Corpuscular Volume 88.6 FL (87-102); Mean Platelet Volume 8.8 FL (9.6-12.0); Monocytes % 11.9 % (1.7-12.7); Neutrophils % 47.8 % (38.7-73.9); Platelet Count 283 T/CUMM (130-400); Red Blood Count 3.67 MC/CUMM (3.8-5.5); Red Cell Distribution Width 12.7 % (9.3-17.3); White Blood Count 5.7 T/CUMM (4-12)
[2020-08-11 06:12] LABS: Osmolality,Calculated 257.8 MOS/KG (273-304); Potassium 3.7 MMOL/L (3.5-5.1)
[2020-08-11 06:55] LABS: Platelet Estimate Normal
[2020-08-11 06:56] LABS: Anisocytosis 1+; Macrocytosis Slight; Ovalocytes Few
[2020-08-11] MEDS: METOPROLOL TARTRATE 50 MG TABLET PO SCH ×3 (07:15→20:07)
[2020-08-11] MEDS: ASPIRIN EC 325 MG TABLET PO SCH ×2 (07:15→09:45)
[2020-08-11] MEDS: lisinopriL 20 MG TABLET PO SCH ×2 (07:15→09:45)
[2020-08-11] MEDS: SERTRALINE 100 MG TABLET PO SCH (08:42)
[2020-08-11] MEDS: PANTOPRAZOLE 40 MG TABLET PO SCH (08:42)
[2020-08-11] MEDS: OXcarbazepine 300 MG TABLET PO SCH ×2 (08:42→20:07)
[2020-08-11] MEDS: NICOTINE 21 MG/24 HR PATCH TRANSDERM SCH (08:42)
[2020-08-11] MEDS: ASCORBIC ACID 500 MG TABLET PO SCH ×2 (08:42→20:07)
[2020-08-11] MEDS: ROSUVASTATIN 10 MG TABLET PO SCH (08:42)
[2020-08-11] MEDS: lamoTRIgine 25 MG TABLET PO SCH ×2 (08:43→20:07)
[2020-08-11] MEDS: ACETAMINOPHEN 325 MG TABLET PO PRN (08:43)
[2020-08-11] MEDS ORDERED: amLODIPine 2.5 MG TABLET PO ONE (13:17)
[2020-08-11] MEDS: SODIUM CHLORIDE 0.9% 1,000 ML IV SCH ×2 (14:32→22:55)
[2020-08-11] MEDS: MELATONIN 3 MG TABLET PO SCH (20:07)
[2020-08-11] MEDS: DIVALPROEX ER 500 MG TABLET PO SCH (20:08)
[2020-08-12] MEDS: ENOXAPARIN 40 MG/0.4 ML SYRINGE SUBCUT SCH ×2 (00:13→22:30)
[2020-08-12] MEDS: ACETAMINOPHEN 325 MG TABLET PO PRN (03:14)
[2020-08-12 06:29] LABS: Calcium 8.5 MG/DL (8.5-10.1); Osmolality,Calculated 261.5 MOS/KG (273-304); Potassium 4.6 MMOL/L (3.5-5.1)
[2020-08-12] MEDS: SODIUM CHLORIDE 0.9% 1,000 ML IV SCH ×2 (07:01→20:27)
[2020-08-12] MEDS: NICOTINE 21 MG/24 HR PATCH TRANSDERM SCH (09:13)
[2020-08-12] MEDS: OXcarbazepine 300 MG TABLET PO SCH ×2 (09:14→20:38)
[2020-08-12] MEDS: amLODIPine 2.5 MG TABLET PO SCH (09:14)
[2020-08-12] MEDS: lisinopriL 20 MG TABLET PO SCH (09:14)
[2020-08-12] MEDS: METOPROLOL TARTRATE 50 MG TABLET PO SCH ×2 (09:14→20:28)
[2020-08-12] MEDS: SERTRALINE 100 MG TABLET PO SCH (09:14)
[2020-08-12] MEDS: lamoTRIgine 25 MG TABLET PO SCH ×2 (09:14→20:28)
[2020-08-12] MEDS: ROSUVASTATIN 10 MG TABLET PO SCH (09:14)
[2020-08-12] MEDS: ASCORBIC ACID 500 MG TABLET PO SCH ×2 (09:14→20:28)
[2020-08-12] MEDS: PANTOPRAZOLE 40 MG TABLET PO SCH (09:15)
[2020-08-12] MEDS: ASPIRIN EC 325 MG TABLET PO SCH (09:15)
[2020-08-12] MEDS: MELATONIN 3 MG TABLET PO SCH (20:28)
[2020-08-12] MEDS: DIVALPROEX ER 500 MG TABLET PO SCH (20:28)
[2020-08-12] MEDS: OLANZapine 10 MG VIAL IM PRN (22:58)
[2020-08-13] MEDS: SODIUM CHLORIDE 0.9% 1,000 ML IV SCH (01:34)
[2020-08-13 05:49] LABS: Basophils % 0.5 % (0.0-0.8); Eosinophils # 0.1 10*3/uL (0.0-0.87); Eosinophils % 2.1 % (0.00-10.9); Hematocrit 27.6 VOL% (35.7-47.0); Hemoglobin 9.5 GM/DL (12.0-16.0); Immature Granulocytes % 0.2 %; Immature Granulocytes Absolute 0.01 #; Lymphocytes # 1.5 10*3/uL (1.4-4.0); Mean Corpuscular HGB Conc 34.4 GM/DL (32-36); Mean Corpuscular Volume 87.9 FL (87-102); Mean Platelet Volume 8.9 FL (9.6-12.0); Monocytes % 13.5 % (1.7-12.7); Neutrophils % 48.7 % (38.7-73.9); Platelet Count 234 T/CUMM (130-400); Red Blood Count 3.14 MC/CUMM (3.8-5.5); Red Cell Distribution Width 12.8 % (9.3-17.3); White Blood Count 4.3 T/CUMM (4-12)
[2020-08-13 06:05] LABS: Calcium 8.7 MG/DL (8.5-10.1); Osmolality,Calculated 263.4 MOS/KG (273-304); Potassium 3.9 MMOL/L (3.5-5.1)
[2020-08-13] MEDS: METOPROLOL TARTRATE 50 MG TABLET PO SCH ×2 (09:45→20:30)
[2020-08-13] MEDS: lisinopriL 20 MG TABLET PO SCH (09:46)
[2020-08-13] MEDS: ASPIRIN EC 325 MG TABLET PO SCH (09:46)
[2020-08-13] MEDS: OXcarbazepine 300 MG TABLET PO SCH ×2 (09:46→20:31)
[2020-08-13] MEDS: lamoTRIgine 25 MG TABLET PO SCH ×2 (09:46→20:31)
[2020-08-13] MEDS: ROSUVASTATIN 10 MG TABLET PO SCH (09:46)
[2020-08-13] MEDS: amLODIPine 2.5 MG TABLET PO SCH (09:46)
[2020-08-13] MEDS: ASCORBIC ACID 500 MG TABLET PO SCH ×2 (09:46→20:30)
[2020-08-13] MEDS: SERTRALINE 100 MG TABLET PO SCH (09:46)
[2020-08-13] MEDS: PANTOPRAZOLE 40 MG TABLET PO SCH (09:46)
[2020-08-13] MEDS: NICOTINE 21 MG/24 HR PATCH TRANSDERM SCH (09:47)
[2020-08-13] MEDS: ACETAMINOPHEN 325 MG TABLET PO PRN (18:14)
[2020-08-13] MEDS: MELATONIN 3 MG TABLET PO SCH (20:30)
[2020-08-13] MEDS: DIVALPROEX ER 500 MG TABLET PO SCH (20:30)
[2020-08-13] MEDS: ENOXAPARIN 40 MG/0.4 ML SYRINGE SUBCUT SCH (22:45)
[2020-08-14 06:14] LABS: Basophils % 0.4 % (0.0-0.8); Eosinophils # 0.1 10*3/uL (0.0-0.87); Eosinophils % 1.5 % (0.00-10.9); Hematocrit 29.9 VOL% (35.7-47.0); Hemoglobin 10.3 GM/DL (12.0-16.0); Immature Granulocytes % 0.4 %; Immature Granulocytes Absolute 0.02 #; Lymphocytes # 1.8 10*3/uL (1.4-4.0); Lymphocytes % 32.4 % (21.3-54.2); Mean Corpuscular HGB Conc 34.4 GM/DL (32-36); Mean Corpuscular Volume 88.5 FL (87-102); Mean Platelet Volume 9.3 FL (9.6-12.0); Monocytes % 15.1 % (1.7-12.7); Neutrophils % 50.2 % (38.7-73.9); Platelet Count 257 T/CUMM (130-400); Red Blood Count 3.38 MC/CUMM (3.8-5.5); Red Cell Distribution Width 12.7 % (9.3-17.3); White Blood Count 5.4 T/CUMM (4-12)
[2020-08-14 06:33] LABS: Calcium 9.2 MG/DL (8.5-10.1); Osmolality,Calculated 265.2 MOS/KG (273-304); Potassium 3.9 MMOL/L (3.5-5.1)
[2020-08-14] MEDS: ASCORBIC ACID 500 MG TABLET PO SCH (08:56)
[2020-08-14] MEDS: ASPIRIN EC 325 MG TABLET PO SCH (08:56)
[2020-08-14] MEDS: ROSUVASTATIN 10 MG TABLET PO SCH (08:56)
[2020-08-14] MEDS: OXcarbazepine 300 MG TABLET PO SCH (08:56)
[2020-08-14] MEDS: lisinopriL 20 MG TABLET PO SCH (08:57)
[2020-08-14] MEDS: amLODIPine 2.5 MG TABLET PO SCH (08:57)
[2020-08-14] MEDS: METOPROLOL TARTRATE 50 MG TABLET PO SCH (08:57)
[2020-08-14] MEDS: SERTRALINE 100 MG TABLET PO SCH (08:57)
[2020-08-14] MEDS: PANTOPRAZOLE 40 MG TABLET PO SCH (08:57)
[2020-08-14] MEDS: lamoTRIgine 25 MG TABLET PO SCH (08:57)
[2020-08-14] MEDS: NICOTINE 21 MG/24 HR PATCH TRANSDERM SCH (08:58)
[2020-08-14 13:51] VITALS: BP 133/53
== END 2020-08-14 14:41 | DRG 91 ==
LOC: EDBD → EDUNIT# → N.ED 21:36 → N.EDINP 08-07 00:48 → SUATTDRO 08-07 00:48 → N.EDINP 08-07 02:15 → N.TELES 08-07 02:42
PROVIDERS: ADMIT Emergency Medicine; ATTEND Internal Medicine

== ENCOUNTER 2020-09-14 21:25 | Observation (INO) ==
[2020-09-14] MEDS ORDERED: HALOPERIDOL 5 MG/ML AMP IV STA (21:52)
[2020-09-14] MEDS ORDERED: BENZTROPINE 2 MG/2 ML AMP IV ONE (21:53)
[2020-09-14 22:04] LABS: Basophils % 0.5 % (0.0-0.8); Eosinophils # 0.1 10*3/uL (0.0-0.87); Eosinophils % 1.4 % (0.00-10.9); Hematocrit 32.1 VOL% (35.7-47.0); Hemoglobin 10.6 GM/DL (12.0-16.0); Immature Granulocytes % 0.3 %; Immature Granulocytes Absolute 0.02 #; Lymphocytes % 30.5 % (21.3-54.2); Mean Corpuscular Volume 89.9 FL (87-102); Mean Platelet Volume 8.9 FL (9.6-12.0); Monocytes % 12.8 % (1.7-12.7); Neutrophils % 54.5 % (38.7-73.9); Platelet Count 241 T/CUMM (130-400); Red Blood Count 3.57 MC/CUMM (3.8-5.5); Red Cell Distribution Width 13.2 % (9.3-17.3); White Blood Count 6.6 T/CUMM (4-12)
[2020-09-14 22:15] LABS: Albumin 3.9 G/DL (3.4-5.0); Bilirubin,Total 0.4 MG/DL (0.2-1.0); Calcium 8.9 MG/DL (8.5-10.1); Osmolality,Calculated 253.9 MOS/KG (273-304); Potassium 3.5 MMOL/L (3.5-5.1); Total Protein 7.1 G/DL (6.4-8.2)
[2020-09-14 23:24] LABS: Barbiturates Screen,Urine Negative (Negative); Benzodiazepines Screen,Urine Negative (Negative); Cannabinoid Screen,Urine Negative (Negative); Opiate Screen,Urine Negative (Negative); Phencyclidine Screen,Urine Negative (Negative)
[2020-09-15] MEDS ORDERED: GLUCAGON 1 MG VIAL IM PRN (00:22)
[2020-09-15] MEDS ORDERED: guaiFENesin/DM ER 600-30 MG TABLET PO PRN (00:22)
[2020-09-15] MEDS ORDERED: NICOTINE 21 MG/24 HR PATCH TRANSDERM PRN (00:22)
[2020-09-15] MEDS ORDERED: diphenhydrAMINE CAP 25 MG CAPSULE PO PRN (00:22)
[2020-09-15] MEDS ORDERED: DEXTROSE 50% 25 GM/50 ML VIAL IV PRN (00:22)
[2020-09-15] MEDS ORDERED: ZALEPLON 5 MG CAPSULE PO PRN (00:22)
[2020-09-15] MEDS ORDERED: ONDANSETRON 4 MG/2 ML VIAL IV PRN (00:22)
[2020-09-15] MEDS ORDERED: hydrALAZINE 20 MG/1 ML VIAL IV PRN (00:22)
[2020-09-15] MEDS: SODIUM CHLORIDE 0.9% 1,000 ML IV SCH ×2 (02:47→15:43)
[2020-09-15 05:47] LABS: Basophils % 0.7 % (0.0-0.8); Eosinophils # 0.1 10*3/uL (0.0-0.87); Eosinophils % 1.3 % (0.00-10.9); Hematocrit 31.6 VOL% (35.7-47.0); Hemoglobin 10.7 GM/DL (12.0-16.0); Immature Granulocytes % 0.4 %; Immature Granulocytes Absolute 0.02 #; Lymphocytes # 1.3 10*3/uL (1.4-4.0); Mean Corpuscular HGB Conc 33.9 GM/DL (32-36); Mean Corpuscular Volume 89.5 FL (87-102); Mean Platelet Volume 8.5 FL (9.6-12.0); Monocytes % 14.2 % (1.7-12.7); Neutrophils % 59.4 % (38.7-73.9); Platelet Count 225 T/CUMM (130-400); Red Blood Count 3.53 MC/CUMM (3.8-5.5); Red Cell Distribution Width 13.2 % (9.3-17.3); White Blood Count 5.6 T/CUMM (4-12)
[2020-09-15 06:16] LABS: Calcium 8.8 MG/DL (8.5-10.1); Osmolality,Calculated 252.1 MOS/KG (273-304); Potassium 3.8 MMOL/L (3.5-5.1); Thyroid Stimulating Hormone 2.52 uIU/ml (0.358-3.74)
[2020-09-15] MEDS: DOCUSATE SODIUM 100 MG CAPSULE PO SCH ×2 (08:35→20:12)
[2020-09-15] MEDS: METOPROLOL TARTRATE 50 MG TABLET PO SCH ×2 (08:36→20:12)
[2020-09-15] MEDS: ENOXAPARIN 40 MG/0.4 ML SYRINGE SUBCUT SCH (08:36)
[2020-09-15] MEDS: amLODIPine 2.5 MG TABLET PO SCH (08:36)
[2020-09-15] MEDS: PANTOPRAZOLE 40 MG TABLET PO SCH (08:36)
[2020-09-15] MEDS: ROSUVASTATIN 10 MG TABLET PO SCH (08:36)
[2020-09-15] MEDS: lisinopriL 20 MG TABLET PO SCH (08:36)
[2020-09-15 11:48] LABS: Folate 13.03 NG/ML (5.38-24.0); Vitamin B12 571 PG/ML (211-911)
[2020-09-15 16:12] LABS: Bilirubin,Urine Negative (Negative); Blood, Urine Small mg/dL (Negative); Glucose,Urine (UA) Negative (Negative); Ketones,Urine Negative (Negative); Nitrite,Urine Negative (Negative); Protein,Urine Negative; RBC,Urine 1 /HPF (0-4); Squamous Epithelial Cell,Urine Occasional /HPF (0-10); Urine Appearance CLEAR (Clear); Urine Color Straw (Yellow); Urine Specific Gravity 1.004 (1.001-1.035); Urine Urobilinogen < 2.0 EU/DL (0.2-1.0)
[2020-09-15] MEDS: ACETAMINOPHEN 325 MG TABLET PO PRN (22:09)
[2020-09-16] MEDS: SODIUM CHLORIDE 0.9% 1,000 ML IV SCH ×2 (03:12→15:07)
[2020-09-16 06:16] LABS: Basophils % 0.6 % (0.0-0.8); Eosinophils # 0.1 10*3/uL (0.0-0.87); Eosinophils % 1.2 % (0.00-10.9); Hematocrit 32.8 VOL% (35.7-47.0); Hemoglobin 10.8 GM/DL (12.0-16.0); Immature Granulocytes % 0.2 %; Immature Granulocytes Absolute 0.01 #; Lymphocytes # 1.4 10*3/uL (1.4-4.0); Lymphocytes % 28.6 % (21.3-54.2); Mean Corpuscular HGB Conc 32.9 GM/DL (32-36); Mean Corpuscular Volume 90.9 FL (87-102); Mean Platelet Volume 8.7 FL (9.6-12.0); Neutrophils % 51.4 % (38.7-73.9); Platelet Count 249 T/CUMM (130-400); Red Blood Count 3.61 MC/CUMM (3.8-5.5); Red Cell Distribution Width 13.3 % (9.3-17.3); White Blood Count 4.9 T/CUMM (4-12)
[2020-09-16 06:35] LABS: Calcium 9.1 MG/DL (8.5-10.1); Osmolality,Calculated 269.8 MOS/KG (273-304); Potassium 3.9 MMOL/L (3.5-5.1)
[2020-09-16 06:38] LABS: Eosinophils 4 % (0-10); Hypochromasia 1+; Lymphocytes 31 % (20-55); Microcytosis 1+; Platelet Estimate Adequate; Segmented Neutrophils 49 % (50-85); Total Cells Counted 100
[2020-09-16] MEDS: lisinopriL 20 MG TABLET PO SCH (08:48)
[2020-09-16] MEDS: amLODIPine 2.5 MG TABLET PO SCH (08:48)
[2020-09-16] MEDS: ENOXAPARIN 40 MG/0.4 ML SYRINGE SUBCUT SCH (08:48)
[2020-09-16] MEDS: ROSUVASTATIN 10 MG TABLET PO SCH (08:48)
[2020-09-16] MEDS: METOPROLOL TARTRATE 50 MG TABLET PO SCH ×2 (08:48→21:17)
[2020-09-16] MEDS: PANTOPRAZOLE 40 MG TABLET PO SCH (08:48)
[2020-09-16] MEDS: DOCUSATE SODIUM 100 MG CAPSULE PO SCH ×2 (08:48→21:17)
[2020-09-16] MEDS: ACETAMINOPHEN 325 MG TABLET PO PRN (16:53)
[2020-09-16] MEDS: MELATONIN 3 MG TABLET PO SCH (21:17)
[2020-09-16] MEDS: ASCORBIC ACID 500 MG TABLET PO SCH (21:17)
[2020-09-16] MEDS: lamoTRIgine 25 MG TABLET PO SCH (21:51)
[2020-09-16] MEDS: OXcarbazepine 300 MG TABLET PO SCH (21:51)
[2020-09-17 06:48] LABS: Basophils % 0.5 % (0.0-0.8); Eosinophils # 0.1 10*3/uL (0.0-0.87); Eosinophils % 1.2 % (0.00-10.9); Hematocrit 32.3 VOL% (35.7-47.0); Hemoglobin 10.9 GM/DL (12.0-16.0); Immature Granulocytes % 0.4 %; Immature Granulocytes Absolute 0.02 #; Lymphocytes # 1.8 10*3/uL (1.4-4.0); Mean Corpuscular HGB Conc 33.7 GM/DL (32-36); Mean Corpuscular Volume 90.5 FL (87-102); Mean Platelet Volume 8.9 FL (9.6-12.0); Monocytes % 14.8 % (1.7-12.7); Neutrophils % 52.1 % (38.7-73.9); Platelet Count 244 T/CUMM (130-400); Red Blood Count 3.57 MC/CUMM (3.8-5.5); Red Cell Distribution Width 13.3 % (9.3-17.3); White Blood Count 5.7 T/CUMM (4-12)
[2020-09-17 07:22] LABS: Calcium 9.2 MG/DL (8.5-10.1); Osmolality,Calculated 271.8 MOS/KG (273-304); Potassium 4.1 MMOL/L (3.5-5.1)
[2020-09-17] MEDS: ENOXAPARIN 40 MG/0.4 ML SYRINGE SUBCUT SCH (09:40)
[2020-09-17] MEDS: lamoTRIgine 25 MG TABLET PO SCH ×2 (15:00→21:22)
[2020-09-17] MEDS: METOPROLOL TARTRATE 50 MG TABLET PO SCH ×3 (15:00→21:22)
[2020-09-17] MEDS: PANTOPRAZOLE 40 MG TABLET PO SCH (15:01)
[2020-09-17] MEDS: OXcarbazepine 300 MG TABLET PO SCH ×2 (15:02→21:22)
[2020-09-17] MEDS: ASCORBIC ACID 500 MG TABLET PO SCH ×2 (15:02→21:22)
[2020-09-17] MEDS: DOCUSATE SODIUM 100 MG CAPSULE PO SCH ×2 (15:02→21:22)
[2020-09-17] MEDS: ASPIRIN EC 325 MG TABLET PO SCH (17:38)
[2020-09-17] MEDS: amLODIPine 2.5 MG TABLET PO SCH (17:38)
[2020-09-17] MEDS: lisinopriL 20 MG TABLET PO SCH (17:38)
[2020-09-17] MEDS: SERTRALINE 100 MG TABLET PO SCH (17:56)
[2020-09-17] MEDS: ROSUVASTATIN 10 MG TABLET PO SCH (17:56)
[2020-09-17] MEDS: MELATONIN 3 MG TABLET PO SCH (21:22)
[2020-09-18] MEDS: ASPIRIN EC 325 MG TABLET PO SCH (09:41)
[2020-09-18] MEDS: PANTOPRAZOLE 40 MG TABLET PO SCH (09:41)
[2020-09-18] MEDS: lamoTRIgine 25 MG TABLET PO SCH (09:41)
[2020-09-18] MEDS: ASCORBIC ACID 500 MG TABLET PO SCH (09:42)
[2020-09-18] MEDS: amLODIPine 2.5 MG TABLET PO SCH (09:42)
[2020-09-18] MEDS: METOPROLOL TARTRATE 50 MG TABLET PO SCH (09:42)
[2020-09-18] MEDS: OXcarbazepine 300 MG TABLET PO SCH (09:42)
[2020-09-18] MEDS: DOCUSATE SODIUM 100 MG CAPSULE PO SCH (09:42)
[2020-09-18] MEDS: lisinopriL 20 MG TABLET PO SCH (09:42)
[2020-09-18] MEDS: SERTRALINE 100 MG TABLET PO SCH (09:42)
[2020-09-18] MEDS: ROSUVASTATIN 10 MG TABLET PO SCH (09:42)
[2020-09-18] MEDS: ENOXAPARIN 40 MG/0.4 ML SYRINGE SUBCUT SCH (09:43)
[2020-09-18 11:55] VITALS: BP 133/55
== END 2020-09-18 14:10 | disposition home health service (06) ==
LOC: EDBD → EDUNIT# → N.EDINP 21:25 → N.ED 21:25 → SUATTDRO 09-15 00:57 → N.TELEN 09-15 00:59 → N.4E 09-16 18:32
PROVIDERS: ADMIT Internal Medicine; ATTEND Internal Medicine

== ENCOUNTER 2021-02-01 19:56 | Observation (INO) ==
[2021-02-01 20:43] LABS: Basophils % 0.5 % (0.0-0.8); Eosinophils % 0.3 % (0.00-10.9); Hematocrit 34.7 VOL% (35.7-47.0); Hemoglobin 11.4 GM/DL (12.0-16.0); Immature Granulocytes % 0.2 %; Immature Granulocytes Absolute 0.01 #; Lymphocytes # 1.3 10*3/uL (1.4-4.0); Lymphocytes % 20.5 % (21.3-54.2); Mean Corpuscular HGB Conc 32.9 GM/DL (32-36); Mean Corpuscular Volume 89.4 FL (87-102); Mean Platelet Volume 8.8 FL (9.6-12.0); Monocytes % 14.3 % (1.7-12.7); Neutrophils % 64.2 % (38.7-73.9); Platelet Count 227 T/CUMM (130-400); Red Blood Count 3.88 MC/CUMM (3.8-5.5); Red Cell Distribution Width 13.6 % (9.3-17.3); White Blood Count 6.3 T/CUMM (4-12)
[2021-02-01 20:57] LABS: Alanine Aminotransferase 13 U/L (13-56); Albumin 3.7 G/DL (3.4-5.0); Alkaline Phosphatase 121 U/L (45-117); Aspartate Amino Transferase 17 U/L (0-37); Bilirubin,Total < 0.39 MG/DL (0.20-1.00); Blood Urea Nitrogen 8 MG/DL (7-18); Calcium 8.8 MG/DL (8.5-10.1); Carbon Dioxide 28 MMOL/L (21-32); Estimated Glom Filtration Rate 75 ML/MIN; Glucose 113 MG/DL (74-106); Osmolality,Calculated 253.2 MOS/KG (273-304); Potassium 3.7 MMOL/L (3.5-5.1); Sodium 127 MMOL/L (136-145)
[2021-02-01] MEDS ORDERED: SODIUM CHLORIDE 0.9% 1,000 ML IV STA (21:18)
[2021-02-01] MEDS ORDERED: LABETALOL 20 MG/4 ML SYRINGE IV STA (21:18)
[2021-02-01 21:24] LABS: Bilirubin,Urine Negative (Negative); Blood, Urine Negative (Negative); Glucose,Urine (UA) Negative (Negative); Hyaline Casts,Urine 3 /LPF (0-3); Ketones,Urine Negative (Negative); Mucus,Urine Occasional /LPF (Occasional); Nitrite,Urine Negative (Negative); Protein,Urine Negative; RBC,Urine 7 /HPF (0-4); Squamous Epithelial Cell,Urine Occasional /HPF (0-10); Urine Appearance CLEAR (Clear); Urine Color Yellow (Yellow); Urine Specific Gravity 1.013 (1.001-1.035); Urine Urobilinogen < 2.0 EU/DL (0.2-1.0)
[2021-02-01 21:31] LABS: PT Patient Result 11.2 SECS (10.5-12.0)
[2021-02-01] MEDS ORDERED: DEXTROSE 50% 25 GM/50 ML VIAL IV PRN (21:34)
[2021-02-01] MEDS ORDERED: ONDANSETRON 4 MG/2 ML VIAL IV PRN (21:34)
[2021-02-01] MEDS ORDERED: GLUCAGON 1 MG VIAL IM PRN (21:34)
[2021-02-01] MEDS ORDERED: diphenhydrAMINE CAP 25 MG CAPSULE PO PRN (21:34)
[2021-02-01] MEDS ORDERED: NICOTINE 21 MG/24 HR PATCH TRANSDERM PRN (21:34)
[2021-02-01] MEDS ORDERED: hydrALAZINE 20 MG/1 ML VIAL IV PRN (21:34)
[2021-02-01] MEDS ORDERED: ZALEPLON 5 MG CAPSULE PO PRN (21:34)
[2021-02-01] MEDS ORDERED: ACETAMINOPHEN 325 MG TABLET PO PRN (21:34)
[2021-02-01] MEDS ORDERED: guaiFENesin/DM ER 600-30 MG TABLET PO PRN (21:34)
[2021-02-01] MEDS ORDERED: ENOXAPARIN 40 MG/0.4 ML SYRINGE SUBCUT SCH (22:00)
[2021-02-01] MEDS: SODIUM CHLORIDE 0.9% 1,000 ML IV SCH (23:46)
[2021-02-02] MEDS ORDERED: TOLVAPTAN 15 MG TABLET PO ONE (04:00)
[2021-02-02 07:50] LABS: Basophils % 0.7 % (0.0-0.8); Hematocrit 33.9 VOL% (35.7-47.0); Hemoglobin 11.3 GM/DL (12.0-16.0); Immature Granulocytes % 0.2 %; Immature Granulocytes Absolute 0.01 #; Lymphocytes # 1.4 10*3/uL (1.4-4.0); Lymphocytes % 32.7 % (21.3-54.2); Mean Corpuscular HGB Conc 33.3 GM/DL (32-36); Mean Corpuscular Volume 88.3 FL (87-102); Mean Platelet Volume 8.8 FL (9.6-12.0); Monocytes % 12.8 % (1.7-12.7); Neutrophils % 52.6 % (38.7-73.9); Platelet Count 237 T/CUMM (130-400); Red Blood Count 3.84 MC/CUMM (3.8-5.5); Red Cell Distribution Width 13.5 % (9.3-17.3); White Blood Count 4.1 T/CUMM (4-12)
[2021-02-02 08:05] LABS: Calcium 9.4 MG/DL (8.5-10.1); Osmolality,Calculated 273.5 MOS/KG (273-304); Potassium 3.9 MMOL/L (3.5-5.1)
[2021-02-02] MEDS ORDERED: OXcarbazepine 300 MG TABLET PO SCH (09:00)
[2021-02-02] MEDS ORDERED: amLODIPine 10 MG TABLET PO SCH (09:00)
[2021-02-02] MEDS ORDERED: lisinopriL 20 MG TABLET PO SCH (09:00)
[2021-02-02] MEDS ORDERED: lamoTRIgine 25 MG TABLET PO SCH (09:00)
[2021-02-02] MEDS ORDERED: INFLUENZA VIRUS VACCINE 0.5 ML SYRINGE IM ONE (09:00)
[2021-02-02] MEDS ORDERED: DOCUSATE SODIUM 100 MG CAPSULE PO SCH (09:00)
[2021-02-02] MEDS ORDERED: PANTOPRAZOLE 40 MG TABLET PO SCH (09:00)
[2021-02-02] MEDS: GABAPENTIN 400 MG CAPSULE PO SCH ×2 (09:59→15:07)
[2021-02-02] MEDS ORDERED: oxyCODONE/ACETAMINOPHEN 5-325 MG TABLET PO PRN (10:11)
[2021-02-02] MEDS: SODIUM CHLORIDE 0.9% 1,000 ML IV SCH (12:37)
[2021-02-02 13:00] VITALS: BP 163/54
[2021-02-02] MEDS ORDERED: ATORVASTATIN 20 MG TABLET PO SCH (21:00)
[2021-02-02] MEDS ORDERED: DIVALPROEX ER 500 MG TABLET PO SCH (21:00)
[2021-02-03] MEDS ORDERED: ASPIRIN CHEW 81 MG TABLET PO SCH (09:00)
[2021-02-04 15:31] LABS: Osmolality, Serum 261 mOsm/kg (275 - 295)
[2021-02-04 19:36] LABS: Osmolality, Urine 333 mOsm/kg (150 - 1150)
== END 2021-02-02 16:20 | disposition home or self-care (01) ==
LOC: EDBD → EDUNIT# → N.EDINP 19:56 → N.ED 19:56 → SUATTDRO 21:34 → N.TELES 02-02 02:54
PROVIDERS: ADMIT Internal Medicine Geriatric Medicine; ATTEND Internal Medicine